=== PATIENT | female | born 1975 | race Caucasian/White ===

== ENCOUNTER 2017-10-12 17:17 | Emergency (ER) | payer MEDICARE, MEDICAID ==
[~2017-10-12] VITALS: Ht 162.6 cm; Wt 99.0 kg
[~2017-10-12 17:17] MED LIST: HYDR-569 PO
[2017-10-12] MEDS ORDERED: ketorolac trometh inj. 60 MG/2 ML VIAL IM ONE (17:45)
[2017-10-12] MEDS ORDERED: HYDROcodone/acetaminophen 5mg/325mg tablet PO ONE (17:45)
[2017-10-12] MEDS ORDERED: IBUP-1986 PO (18:03)
[2017-10-12 18:19] VITALS: BP 146/92
== END 2017-10-12 18:21 | disposition home or self-care (01) ==
LOC: ER 17:17
DX: M25.511 Pain in right shoulder (principal); Z90.49 Acquired absence of other specified parts of digestive tract; Z88.8 Allergy status to other drugs, medicaments and biological substances; Z79.899 Other long term (current) drug therapy
CPT/HCPCS: 73030; 96372; 99284; J1885

== ENCOUNTER 2018-02-07 08:56 | Day surgery (SDC) | payer MEDICARE, MEDICAID ==
[2018-02-02 16:35] LABS: BASOPHILS # (AUTO) 0.2 X10'3 (0-0.2); BASOPHILS % (AUTO) 1.2 % (0-1); EOSINOPHILS # (AUTO) 0.2 X10'3 (0-0.9); EOSINOPHILS % (AUTO) 1.9 % (0-6); LYMPHOCYTES # (AUTO) 3.7 X10'3 (1.1-4.8); LYMPHOCYTES % (AUTO) 30.3 % (21-51); MEAN CORPUSCULAR HEMOGLOBIN 30.3 PG (27.0-31.0); MEAN CORPUSCULAR HGB CONC 34.3 % (33.0-36.5); MEAN CORPUSCULAR VOLUME 88.5 FL (78-98); MEAN PLATELET VOLUME 8.2 FL (7.4-10.4); MONOCYTES # (AUTO) 0.6 X10'3 (0-0.9); MONOCYTES % (AUTO) 5.1 % (2-12); NEUTROPHILS # (AUTO) 7.5 X10'3 (1.8-7.7); NEUTROPHILS % (AUTO) 61.5 % (42-75); PRE OP HEMATOCRIT 37.3 % (35.0-45.0); PRE OP HEMOGLOBIN 12.8 g/dL (12.0-16.0); PRE OP PLATELET COUNT 410 X10'3 (140-440); RED BLOOD COUNT 4.21 X10'6 (4.20-5.60); RED CELL DISTRIBUTION WIDTH 15.9 % (11.5-14.5)
[2018-02-02 16:39] LABS: PRE OP PROTIME 9.9 SECONDS (9.0-12.0)
[2018-02-02 16:46] LABS: ALBUMIN 3.6 G/DL (3.4-5.0); ALBUMIN/GLOBULIN RATIO 0.9 (1.1-1.5); BLOOD UREA NITROGEN 10 MG/DL (7-18); BUN/CREATININE RATIO 9.7 (6.6-38.0); CALCIUM 8.9 MG/DL (8.5-10.1); CHLORIDE 104 MMOL/L (99-107); CREATININE 1.03 MG/DL (0.40-0.90); PRE OP ALT 30 U/L (30-65); PRE OP ANION GAP 10 (8-16); PRE OP AST 22 U/L (10-37); PRE OP BILIRUB, TOTAL 0.3 MG/DL (0.0-1.0); PRE OP GLUCOSE 102 MG/DL (70-104); PRE OP SODIUM 141 MMOL/L (135-145); TOTAL CARBON DIOXIDE 27.3 MMOL/L (24-32); TOTAL PROTEIN 7.4 G/DL (6.4-8.2); eGFR 59 ML/MIN
[2018-02-02 16:54] LABS: PRE OP POTASSIUM 3.3 MMOL/L (3.4-5.1)
[2018-02-02 17:06] LABS: ALKALINE PHOSPHATASE 72 IU/L (46-116)
[2018-02-07] VITALS (18 sets, daily range): BP systolic 93–135; BP diastolic 53–83
[~2018-02-07] VITALS: Ht 162.6 cm; Wt 97.1 kg
[~2018-02-07 08:56] MED LIST changes: -HYDR-569 PO; +IBUP-1984 PO; +LOPE-155 PO; +LORA0.5T PO; +LORA10TA65 PO; +albuterol 2.5 MG/3 ML nebule NEB ONE; +ceFOXitin 2 GM ADDvantage bag 100 ML IV ONE; +famotidine 20mg tablet PO ONE
[2018-02-07] MEDS ORDERED: meperidine/PF 25mg/ml syringe IV PRN (09:15)
[2018-02-07] MEDS ORDERED: hydrALAZINE 20mg/ml inj. IV PRN (09:15)
[2018-02-07] MEDS ORDERED: HYDROmorphone inj. 0.5 MG/0.5 ML DISP.SYRIN IV PRN ×2 (09:15)
[2018-02-07] MEDS ORDERED: fentaNYL/PF 50MCG/1 ML 2ML syringe IV PRN (09:15)
[2018-02-07] MEDS ORDERED: ringers solution, lacted 1,000 ML IV ONE (09:15)
[2018-02-07] MEDS ORDERED: labetalol 20mg/4ml (5mg/ml) syringe IV PRN (09:15)
[2018-02-07] MEDS ORDERED: proCHLORperazine 10 MG/2 ml inj IV PRN (09:15)
[2018-02-07] MEDS ORDERED: proMETHazine 25mg rectal suppository RC PRN (09:15)
[2018-02-07] MEDS: ringers solution, lacted 1,000 ML IV SCH ×4 (09:16→21:45)
[2018-02-07] MEDS ORDERED: clindamycin phosphate 40gm vag cream ONE (09:48)
[2018-02-07] MEDS ORDERED: vasoPRESSIN 20 units/ml inj. ONE (09:49)
[2018-02-07] MEDS ORDERED: ceFAZolin 1000mg inj ONE (09:49)
[2018-02-07] MEDS ORDERED: LIDOcaine 1% 30ml preserv. free vial ONE ×2 (09:49→09:53)
[2018-02-07] MEDS ORDERED: morphine 10mg/ml inj. ONE (09:49)
[2018-02-07 09:56] LABS: ISTAT CREATININE 0.8 mg/dL (0.6-1.1); ISTAT HGB 14.6 g/dl (12.0-16.0); ISTAT IONIZED CALCIUM 1.19 mmol/L (1.03-1.32); ISTAT K 4.2 mmol/L (3.5-5.1); POC BUN/CREATININE RATIO 12.5 (6.6-38.0)
[2018-02-07] MEDS ORDERED: glycopyrrolate 0.2mg/ml inj ONE (11:16)
[2018-02-07] MEDS ORDERED: sevoflurane 250ml liquid IH ONE (11:16)
[2018-02-07] MEDS ORDERED: ePHEDrine 50MG/ML INJ. ONE ×2 (11:16→11:21)
[2018-02-07] MEDS ORDERED: neostigmine in sterile water inj 5 MG/5 ML syringe IJ ONE (11:16)
[2018-02-07] MEDS ORDERED: LIDOcaine 2% 5ml jelly ONE (11:21)
[2018-02-07] MEDS ORDERED: ondansetron/PF 4mg/2ml inj ONE (11:21)
[2018-02-07] MEDS ORDERED: LIDOcaine 2% (20mg/ml) 5ml vial ONE (11:21)
[2018-02-07] MEDS ORDERED: propofol inj 20 ML IV ONE (11:21)
[2018-02-07] MEDS ORDERED: fentaNYL/PF 50MCG/1 ML 2ML syringe ONE (11:21)
[2018-02-07] MEDS ORDERED: rocuronium 10mg/ml inj IV ONE (11:21)
[2018-02-07] MEDS ORDERED: dexamethasone sod phosphate 4mg/ml inj. ONE (11:21)
[2018-02-07] MEDS ORDERED: midazolam 2 mg/2 ml injection ONE (11:22)
[2018-02-07] MEDS ORDERED: HYDROmorphone 1 mg/ml syringe ONE ×2 (11:22→14:37)
[2018-02-07] MEDS ORDERED: ketorolac trometh. 30mg/ml inj. ONE (13:43)
[2018-02-07] MEDS ORDERED: ketorolac trometh. 30mg/ml inj. IV PRN (13:45)
[2018-02-07] MEDS ORDERED: temazepam 15mg capsule PO PRN (13:45)
[2018-02-07] MEDS ORDERED: diphenhydrAMINE 50 mg/ml inj IV PRN (13:45)
[2018-02-07] MEDS ORDERED: naloxone 0.4 mg/ml inj IV PRN (13:45)
[2018-02-07] MEDS ORDERED: magnesium hydroxide 30ml (MOM) UD suspension PO PRN (13:45)
[2018-02-07] MEDS ORDERED: HYDROcodone/acetaminophen 5mg/325mg tablet PO PRN ×2 (13:45)
[2018-02-07] MEDS ORDERED: normal saline 500ml IV soln 500 ML IV PRN (13:45)
[2018-02-07] MEDS ORDERED: CADD PCA waste documentation MC PRN (13:45)
[2018-02-07] MEDS ORDERED: LIDOcaine 1%/PF (10mg/ml) 5ml vial ONE (13:46)
[2018-02-07] MEDS: ondansetron/PF 4mg/2ml inj IV PRN (14:07)
[2018-02-07] MEDS: fentaNYL/PF 50MCG/1 ML 2ML syringe IV PRN ×2 (14:16→14:29)
[2018-02-07] MEDS: HYDROmorphone/NS 1 mg/ml CADD 50 ML IV SCH ×5 (14:23→23:00)
[2018-02-07] MEDS ORDERED: HYDROmorphone 1 mg/ml syringe IV PRN (14:41)
[2018-02-07] MEDS: HYDROmorphone 1 mg/ml syringe IV PRN ×4 (14:43→15:21)
[2018-02-07] MEDS ORDERED: acetaminophen 1,000mg/100ml IV 100 ML IV ONE (15:10)
[2018-02-07] MEDS ORDERED: LORazepam 2 mg/ml vial IV ONE (17:40)
[2018-02-07] MEDS: simethicone 80mg chew tab PO SCH (19:05)
[2018-02-07] MEDS ORDERED: LORazepam 2 mg/ml vial IV PRN (21:20)
[2018-02-07] MEDS: docusate sod 100mg capsule PO SCH (21:45)
[2018-02-08] VITALS: BP 119/67
[2018-02-08] MEDS: ondansetron/PF 4mg/2ml inj IV PRN (00:12)
[2018-02-08] MEDS: HYDROmorphone/NS 1 mg/ml CADD 50 ML IV SCH ×4 (01:00→07:00)
[2018-02-08] MEDS: ringers solution, lacted 1,000 ML IV SCH ×3 (01:02→10:14)
[2018-02-08 05:39] LABS: BASOPHILS % (AUTO) 0.1 % (0-1); EOSINOPHILS % (AUTO) 0 % (0-6); HEMATOCRIT 35.4 % (35.0-45.0); HEMOGLOBIN 11.9 g/dl (12.0-16.0); LYMPHOCYTES # (AUTO) 1.3 X10'3 (1.1-4.8); LYMPHOCYTES % (AUTO) 7.4 % (21-51); MEAN CORPUSCULAR HEMOGLOBIN 30.7 PG (27.0-31.0); MEAN CORPUSCULAR HGB CONC 33.7 % (33.0-36.5); MEAN CORPUSCULAR VOLUME 90.9 FL (78-98); MEAN PLATELET VOLUME 8.7 FL (7.4-10.4); MONOCYTES # (AUTO) 0.3 X10'3 (0-0.9); MONOCYTES % (AUTO) 1.7 % (2-12); NEUTROPHILS # (AUTO) 15.4 X10'3 (1.8-7.7); NEUTROPHILS % (AUTO) 90.8 % (42-75); PLATELET COUNT 329 X10'3 (140-440); RED BLOOD COUNT 3.89 X10'6 (4.20-5.60); RED CELL DISTRIBUTION WIDTH 16.6 % (11.5-14.5)
[2018-02-08 06:43] VITALS: BP 144/78
[2018-02-08] MEDS: simethicone 80mg chew tab PO SCH ×2 (08:05→12:47)
[2018-02-08] MEDS: docusate sod 100mg capsule PO SCH (08:05)
[2018-02-08] MEDS ORDERED: HYDROcodone/acetaminophen 5mg/325mg tablet PO ONE (11:35)
== END 2018-02-08 16:53 | disposition home or self-care (01) ==
LOC: PAS 08:56 → SUR 3N 13:45 → UNDOADMOB 13:45 → SUR 3N 13:45 → UNDODISOB 02-08 16:53 → PAS 02-08 16:53
PROVIDERS: ATTEND Specialist
DX: N80.0 Endometriosis of uterus (principal); N89.8 Other specified noninflammatory disorders of vagina; N81.4 Uterovaginal prolapse, unspecified; N39.46 Mixed incontinence; K66.0 Peritoneal adhesions (postprocedural) (postinfection); F41.8 Other specified anxiety disorders; F17.210 Nicotine dependence, cigarettes, uncomplicated; F31.89 Other bipolar disorder; M19.90 Unspecified osteoarthritis, unspecified site; M79.7 Fibromyalgia; G43.909 Migraine, unspecified, not intractable, without status migrainosus; Z90.49 Acquired absence of other specified parts of digestive tract; Z98.51 Tubal ligation status; Z79.1 Long term (current) use of non-steroidal anti-inflammatories (NSAID); Z88.8 Allergy status to other drugs, medicaments and biological substances; Z98.890 Other specified postprocedural states; Z79.899 Other long term (current) drug therapy
CPT/HCPCS: 36415; 57240; 57283; 57288; 58552; 80047; 80053; 85025; 85610; 85730; 86870; 86885; 86900; 86901; 86902; 86905; 86920; 86922; 87070; A4315; A4355; C1771; J0131; J0690; J0694; J1100; J1170; J1885; J2001; J2060; J2250; J2270; J2405; J2704; J2710; J3010; J3490; J7030; J7120; 88302; 88307; A6250; A7000; G0378